=== PATIENT | male | born 1955 | race Caucasian/White ===

== ENCOUNTER 2017-11-27 15:28 | Emergency (ER) | payer MEDICAID ==
[~2017-11-27] VITALS: Ht 170.2 cm; Wt 59.0 kg
[~2017-11-27 15:28] MED LIST: CLOP75TA35 PO; HYDR-565 PO; NICO-631 TD
[2017-11-27 17:24] LABS: BASOPHILS % (AUTO) 0.2 % (0-1); EOSINOPHILS % (AUTO) 0.1 % (0-6); HEMATOCRIT 31.6 % (42.0-52.0); HEMOGLOBIN 10.6 g/dl (14.0-17.9); LYMPHOCYTES # (AUTO) 0.4 X10'3 (1.1-4.8); LYMPHOCYTES % (AUTO) 6.1 % (21-51); MEAN CORPUSCULAR HEMOGLOBIN 29.4 PG (27.0-31.0); MEAN CORPUSCULAR HGB CONC 33.4 % (33.0-36.5); MEAN CORPUSCULAR VOLUME 88.1 FL (78-98); MEAN PLATELET VOLUME 7.1 FL (7.4-10.4); MONOCYTES # (AUTO) 0.3 X10'3 (0-0.9); MONOCYTES % (AUTO) 4.6 % (2-12); NEUTROPHILS # (AUTO) 6.2 X10'3 (1.8-7.7); PLATELET COUNT 287 X10'3 (140-440); RED BLOOD COUNT 3.59 X10'6 (4.70-6.10); RED CELL DISTRIBUTION WIDTH 16.7 % (11.5-14.5)
[2017-11-27 17:35] LABS: INR 1.1 INR; PARTIAL THROMBOPLASTIN TIME 28 SECONDS (22-32); PROTHROMBIN TIME 10.9 SECONDS (9.0-12.0)
[2017-11-27 17:39] LABS: ALANINE AMINOTRANSFERASE 69 U/L (12-78); ALBUMIN 2.9 G/DL (3.4-5.0); ALBUMIN/GLOBULIN RATIO 0.6 (1.1-1.5); ALKALINE PHOSPHATASE 87 IU/L (46-116); ANION GAP 9 (8-16); ASPARTATE AMINO TRANSFERASE 41 U/L (10-37); BILIRUBIN,TOTAL 0.5 MG/DL (0.1-1.0); BLOOD UREA NITROGEN 20 MG/DL (7-18); CALCIUM 9.2 MG/DL (8.5-10.1); CHLORIDE 103 MMOL/L (99-107); CREATININE 0.91 MG/DL (0.60-1.10); GLUCOSE 105 MG/DL (70-104); MAGNESIUM 1.3 MG/DL (1.5-2.4); SODIUM 137 MMOL/L (135-145); TOTAL CARBON DIOXIDE 24.9 MMOL/L (24-32); TOTAL PROTEIN 7.5 G/DL (6.4-8.2); eGFR 84 ML/MIN
[2017-11-27] MEDS ORDERED: normal saline 1000ML IV soln IVB ONE (17:40)
[2017-11-27] MEDS ORDERED: vancomycin/NS 1 GM ADD-VANTAGE 250 ML IV ONE (17:40)
[2017-11-27 18:30] LABS: CLARITY,URINE CLEAR (Clear); COLOR,URINE YELLOW (Yellow); GLUCOSE, URINE NEGATIVE (Neg); KETONES,URINE NEGATIVE (Neg); LEUKOCYTE ESTERASE ,URINE NEGATIVE (Neg); NITRITES, URINE NEGATIVE (Neg); OCCULT BLOOD,URINE LARGE (Neg); PROTEIN,URINE NEGATIVE (Neg); UROBILINOGEN,URINE 0.2 E.U/dL (0.2-1.0)
[2017-11-27 18:35] LABS: UA COLLECTION TYPE URINAL
[2017-11-27] MEDS ORDERED: acetaminophen 650mg rectal suppository RC ONE (18:35)
[2017-11-27 18:37] LABS: BACTERIA,URINE FEW /HPF (Neg); RBC,URINE 50-100 /HPF (0-2); SQUAMOUS EPITHELIAL CELL,UR FEW /LPF (FEW); WBC,URINE 0-4 /HPF (0-4); YEAST MODERATE /HPF (NEGATIVE)
[2017-11-27 18:44] LABS: URINE AMPHETAMINE SCREEN POSITIVE (Neg); URINE BARBITUATE SCREEN NEGATIVE (Neg); URINE BENZODIAZEPINES SCREEN NEGATIVE (Neg); URINE CANNABINOID SCREEN NEGATIVE (Neg); URINE COCAINE SCREEN NEGATIVE (Neg); URINE METHADONE SCREEN NEGATIVE (Neg); URINE OPIATE SCREEN NEGATIVE (Neg); URINE PHENCYCLIDINE SCREEN NEGATIVE (Neg)
[2017-11-27 18:50] LABS: ACETAMINOPHEN < 2.0 UG/ML (10-30); ETHANOL < 0.010 GM/DL (0.0-0.010)
[2017-11-27] MEDS ORDERED: magnesium 2GM in 50ml NS 50 ML IV PRN (18:55)
[2017-11-27] MEDS ORDERED: piperacillin/tazo 3.375gm/50ml 50 ML IV SCH (20:00)
[2017-11-27 20:56] VITALS: BP 105/74
== END 2017-11-27 21:01 | disposition short-term general hospital (02) ==
LOC: ER 15:29
DX: S12.110A Anterior displaced Type II dens fracture, initial encounter for closed fracture (principal); S70.12XA Contusion of left thigh, initial encounter; A41.9 Sepsis, unspecified organism; N99.820 Postprocedural hemorrhage of a genitourinary system organ or structure following a genitourinary system procedure; M25.559 Pain in unspecified hip; G89.29 Other chronic pain; F15.10 Other stimulant abuse, uncomplicated; R41.82 Altered mental status, unspecified; F12.90 Cannabis use, unspecified, uncomplicated; I10 Essential (primary) hypertension; J44.9 Chronic obstructive pulmonary disease, unspecified; Y83.8 Other surgical procedures as the cause of abnormal reaction of the patient, or of later complication, without mention of misadventure at the time of the procedure; Y92.89 Other specified places as the place of occurrence of the external cause; W19.XXXA Unspecified fall, initial encounter; Y93.89 Activity, other specified; Y99.8 Other external cause status
CPT/HCPCS: 36415; 70450; 71045; 72125; 80053; 80305; 80320; 80329; 81001; 83605; 83735; 84145; 85025; 85610; 85730; 87040; 87077; 87186; 93005; 96365; 96367; 96368; 99291; A6253; A6446; A6449; C1758; J2543; J3370; J3475; J7030; L0172; 96361; 99285

== ENCOUNTER 2021-05-08 11:48 | Emergency (ER) | payer BC, MEDICAID ==
[~2021-05-08] VITALS: Ht 170.2 cm; Wt 75.0 kg
[~2021-05-08 11:48] MED LIST changes: +CLOP75TA34 PO; -CLOP75TA35 PO; -HYDR-565 PO; +IBUP-1985 PO
[2021-05-08 12:27] LABS: BASOPHILS % (AUTO) 0.6 % (0-1); EOSINOPHILS # (AUTO) 0.2 X10'3 (0-0.9); EOSINOPHILS % (AUTO) 2.9 % (0-6); HEMATOCRIT 37.5 % (42.0-52.0); HEMOGLOBIN 12.6 g/dl (14.0-17.9); LYMPHOCYTES # (AUTO) 1.1 X10'3 (1.1-4.8); LYMPHOCYTES % (AUTO) 19.6 % (21-51); MEAN CORPUSCULAR HEMOGLOBIN 31.2 PG (27.0-31.0); MEAN CORPUSCULAR HGB CONC 33.5 g/dL (33.0-36.5); MEAN PLATELET VOLUME 7.3 FL (7.4-10.4); MONOCYTES # (AUTO) 0.8 X10'3 (0-0.9); MONOCYTES % (AUTO) 12.9 % (2-12); NEUTROPHILS # (AUTO) 3.7 X10'3 (1.8-7.7); PLATELET COUNT 194 X10'3 (140-440); RED BLOOD COUNT 4.03 X10'6 (4.70-6.10); RED CELL DISTRIBUTION WIDTH 15.7 % (11.5-14.5); WHITE BLOOD COUNT 5.9 X10'3 (4.5-11.0)
[2021-05-08 12:35] LABS: D-DIMER 3.69 MG/L FEU (0-0.50)
[2021-05-08 12:43] LABS: ALANINE AMINOTRANSFERASE 35 U/L (12-78); ALBUMIN 1.5 G/DL (3.4-5.0); ALBUMIN/GLOBULIN RATIO 0.3 (1.1-1.5); ALKALINE PHOSPHATASE 96 IU/L (46-116); ANION GAP 6 (8-16); ASPARTATE AMINO TRANSFERASE 50 U/L (10-37); BILIRUBIN,TOTAL 0.5 MG/DL (0.1-1.0); BLOOD UREA NITROGEN 26 MG/DL (7-18); BUN/CREATININE RATIO 21.7 (5.4-32.0); CALCIUM 7.9 MG/DL (8.5-10.1); CHLORIDE 103 MMOL/L (99-107); POTASSIUM 4.8 MMOL/L (3.5-5.1); SODIUM 135 MMOL/L (135-145); TOTAL CARBON DIOXIDE 25.7 MMOL/L (24-32); TOTAL PROTEIN 7.1 G/DL (6.4-8.2); eGFR 61 ML/MIN
[2021-05-08 13:35] LABS: GLUCOSE 102 MG/DL (70-104)
[2021-05-08] MEDS ORDERED: iohexol 350 MG/ML 50ML vial IV ONE (14:19)
[2021-05-08] MEDS ORDERED: iohexol 350MG/ML 100ml bottle IV ONE (14:20)
--- NOTE | 2021-05-08 14:45 | NUR ---
PT TAKEN TO CT VIA GURNEY BY TECH.
[2021-05-08 18:09] VITALS: BP 155/90
== END 2021-05-08 18:07 | disposition home or self-care (01) ==
LOC: ER 11:48
DX: K40.90 Unilateral inguinal hernia, without obstruction or gangrene, not specified as recurrent (principal); R10.30 Lower abdominal pain, unspecified; R60.0 Localized edema; I10 Essential (primary) hypertension; J44.9 Chronic obstructive pulmonary disease, unspecified; G89.29 Other chronic pain; F12.90 Cannabis use, unspecified, uncomplicated; Z98.890 Other specified postprocedural states; Z72.89 Other problems related to lifestyle; Z60.2 Problems related to living alone; Z79.899 Other long term (current) drug therapy
CPT/HCPCS: 36415; 71045; 75635; 80053; 83880; 84484; 85025; 85379; 93005; 93922; 99285; Q9967

== ENCOUNTER 2021-11-18 19:25 | Inpatient (IN) | payer BC, MEDICAID ==
[~2021-11-18] VITALS: Ht 167.6 cm; Wt 93.3 kg
[2021-11-18] MEDS ORDERED: sevoflurane 250ml liquid IH ONE (19:43)
[2021-11-18] MEDS ORDERED: fentaNYL /PF 50mcg/ml 5ml ampule ONE (19:45)
[2021-11-18] MEDS ORDERED: midazolam 1 mg/ML 2ml injection ONE (19:45)
[2021-11-18] MEDS ORDERED: propofol inj 20 ML IV ONE (19:45)
[2021-11-18] MEDS ORDERED: heparin 1,000unit/ml 10ml vial 10 ML ONE (20:21)
[2021-11-18] MEDS ORDERED: rocuronium 10mg/ml inj IV ONE ×2 (20:21)
[2021-11-18] MEDS ORDERED: dexamethasone sod phosphate 4mg/ml inj. ONE (20:30)
[2021-11-18] MEDS ORDERED: albumin (Human) 5% 250ml 500 ML IV ONE ×2 (20:38→23:28)
[2021-11-18] MEDS ORDERED: ceFAZolin 1000mg inj ONE ×2 (20:39)
[2021-11-18] MEDS ORDERED: NORepinephrine 1 mg/ml inj IV ONE (21:29)
[2021-11-18 23:13] LABS: APTT 50 SECONDS (22-32)
[2021-11-18] MEDS ORDERED: albumin (Human) 5% 250ml 250 ML IV ONE (23:29)
[2021-11-19] VITALS (22 sets, daily range): BP systolic 94–151; BP diastolic 42–59
[2021-11-19] MEDS ORDERED: rocuronium 10mg/ml inj IV ONE (00:50)
[2021-11-19] MEDS ORDERED: FENTANYL-0.9 % NACL/PF 100 ML IV PRN ×2 (01:15)
[2021-11-19] MEDS: potassium CL 20mEq in D5-1/2NS 1,000 ML IV SCH ×2 (01:30→09:30)
[2021-11-19] MEDS ORDERED: midazolam 100mg in NS 100ml 100 ML IV PRN (01:30)
[2021-11-19] MEDS ORDERED: ondansetron/PF 4mg/2ml inj IV PRN (01:30)
[2021-11-19 01:49] LABS: ABG BASE EXCESS -5.8 mmol/L (-2.0-2.0); ABG HCO3 20.5 mmol/L (22.0-26.0); ABG OXYGEN SATURATION 95.2 % (94-97); ABG PO2 (T) 85.7 mmHg (75.0-100.0); FCOHb 0.8 % (0.0-3.9); FMetHb 0.5 % (0.0-1.5); PATIENT TEMPERATURE 37.5; PEEP 5 cm H2O; RESPIRATORY RATE 14 b/min; TIDAL VOLUME 500 mL; TOTAL HEMOGLOBIN 13.1 G/dl (14.0-18.0)
[2021-11-19 01:54] LABS: BASOPHILS % (AUTO) 0.1 % (0-1); EOSINOPHILS % (AUTO) 0 % (0-6); HEMATOCRIT 35.8 % (42.0-52.0); HEMOGLOBIN 12.1 g/dl (14.0-17.9); LYMPHOCYTES # (AUTO) 0.7 X10'3 (1.1-4.8); LYMPHOCYTES % (AUTO) 5.1 % (21-51); MEAN CORPUSCULAR HEMOGLOBIN 31.3 PG (27.0-31.0); MEAN CORPUSCULAR HGB CONC 33.9 g/dL (33.0-36.5); MEAN CORPUSCULAR VOLUME 92.2 FL (78-98); MEAN PLATELET VOLUME 8.2 FL (7.4-10.4); MONOCYTES # (AUTO) 0.9 X10'3 (0-0.9); MONOCYTES % (AUTO) 6.2 % (2-12); NEUTROPHILS # (AUTO) 12.4 X10'3 (1.8-7.7); NEUTROPHILS % (AUTO) 88.6 % (42-75); PLATELET COUNT 171 X10'3 (140-440); RED BLOOD COUNT 3.88 X10'6 (4.70-6.10); RED CELL DISTRIBUTION WIDTH 16.1 % (11.5-14.5)
[2021-11-19] MEDS ORDERED: vancomycin/NS 1 GM ADD-VANTAGE 250 ML IV SCH (02:00)
[2021-11-19 02:09] LABS: APTT 36 SECONDS (22-32)
[2021-11-19 02:11] LABS: ALANINE AMINOTRANSFERASE 53 U/L (12-78); ALBUMIN 2.2 G/DL (3.4-5.0); ALBUMIN/GLOBULIN RATIO 0.7 (1.1-1.5); ALKALINE PHOSPHATASE 47 IU/L (46-116); ANION GAP 10 (8-16); ASPARTATE AMINO TRANSFERASE 25 U/L (10-37); BILIRUBIN,TOTAL 2.5 MG/DL (0.1-1.0); BLOOD UREA NITROGEN 20 MG/DL (7-18); BUN/CREATININE RATIO 19.8 (5.4-32.0); CALCIUM 6.6 MG/DL (8.5-10.1); CHLORIDE 104 MMOL/L (99-107); CREATININE 1.01 MG/DL (0.60-1.10); GLUCOSE 163 MG/DL (70-104); MAGNESIUM 1.3 MG/DL (1.5-2.4); PHOSPHORUS 3.3 MG/DL (2.3-4.5); POTASSIUM 3.9 MMOL/L (3.5-5.1); SODIUM 137 MMOL/L (135-145); TOTAL CARBON DIOXIDE 22.7 MMOL/L (24-32); TOTAL PROTEIN 5.4 G/DL (6.4-8.2); TRIGLYCERIDES 54 MG/DL (20-135); eGFR 74 ML/MIN
[2021-11-19] MEDS: FENTANYL-0.9 % NACL/PF 100 ML IV PRN ×4 (02:11→21:45)
[2021-11-19] MEDS: propofol 1000mg/100ml bottle 100 ML IV SCH ×5 (02:11→21:50)
[2021-11-19 03:20] LABS: TOTAL CELLS COUNTED 100
[2021-11-19 03:21] LABS: ANISOCYTOSIS 1+; PLATELET ESTIMATE NORMAL
--- NOTE | 2021-11-19 06:30 | NUR ---
Patient in room CICU 2008. I have received report from Bess PATRICIO and had the opportunity to ask questions and assume patient care.
[2021-11-19] MEDS: NORepinephrine 8mg/ 250ml NS 250 ML IV SCH ×2 (07:06→16:02)
[2021-11-19] MEDS: piperacillin/tazo 3.375gm/50ml 50 ML IV SCH ×2 (08:44→16:01)
[2021-11-19] MEDS ORDERED: dextrose 50%-water 50ml dispensing syringe IV PRN ×2 (08:55)
[2021-11-19] MEDS ORDERED: insulin Lispro (HumaLOG) vial - multi-dose SQ SCH (08:55)
[2021-11-19] MEDS ORDERED: glucagon, human recombinant 1mg kit SUBCUT PRN (08:55)
[2021-11-19] MEDS ORDERED: dextrose ORAL solution 15 GM/59 ML bottle PO PRN ×2 (08:55)
[2021-11-19] MEDS ORDERED: MESSAGE TO PHARMACY PO ONE (08:55)
[2021-11-19] MEDS ORDERED: IBUP-1986 PO (09:23)
[2021-11-19 11:23] LABS: HEMOGLOBIN A1C 5.4 % (4.5-6.2)
--- NOTE | 2021-11-19 11:43 | NUR ---
Initial: Pt admit for right femoral artery bleed with a large right groin hematoma. Pt s/p iliopopliteal bypass with right groin and sartorius muscle flab exploration. Pt remains intubated at this time, with an NGT in place though no TF consult. Will place TF recommendations below for if expected prolonged intubation and to receive nutrition support. Noted pt receiving Propofol, visualized at bedside to be running at 14.95 mL/hr providing 395 kcal/day, TF recommendations have been adjusted accordingly. Will continue to follow closely. Recommendations: 1) IF TF and Propofol at 14.95 mL/hr (395 kcal/day), continuous Vital AF via NGT with 70 mL/hr goal rate. To begin at 30 mL/hr and advance by 20 mL Q8H as tolerated to goal rate 2) IF TF and no Propofol, continuous Vital AF via NGT with 80 mL/hr goal rate. To begin at 20 mL/hr and advance by 20 mL Q8H as tolerated to goal rate 3) IF TF, additional 125 mL water flush Q4H; monitor serum Na 4) IF TF, prealbumin q Thursday/; daily scaled weights 5) Routine bowel care 6) Advance to regular diet as medically indicated following extubation Addendum: 11/19/21 at [address] Amended: Links added.
[2021-11-19] MEDS ORDERED: albumin (Human) 5% 250ml 250 ML IV ONE (14:25)
--- NOTE | 2021-11-19 14:49 | NUR ---
Dr. Reinoso and Dr. Tabor into see patient.
[2021-11-19] MEDS ORDERED: potassium Cl 20 mEq SR tablet PO PRN (14:55)
[2021-11-19] MEDS ORDERED: potassium Cl 20mEq/100mL bag 100 ML IV PRN (14:55)
[2021-11-19] MEDS ORDERED: sodium phosphate inj. 15 MMOL in dextrose 5%-water 250 ML IV PRN (14:55)
[2021-11-19] MEDS ORDERED: pantoprazole 40MG/D5 100ML BAG 100 ML IV SCH (14:55)
[2021-11-19] MEDS ORDERED: sodium phosphate inj. 30 MMOL in dextrose 5%-water 250 ML IV PRN (14:55)
[2021-11-19] MEDS ORDERED: Neutra Phos packet PO PRN (14:55)
[2021-11-19 15:19] LABS: BASOPHILS % (AUTO) 0 % (0-1); EOSINOPHILS % (AUTO) 0 % (0-6); HEMATOCRIT 34.2 % (42.0-52.0); HEMOGLOBIN 11.3 g/dl (14.0-17.9); LYMPHOCYTES # (AUTO) 0.9 X10'3 (1.1-4.8); MEAN CORPUSCULAR HEMOGLOBIN 30.8 PG (27.0-31.0); MEAN CORPUSCULAR HGB CONC 32.9 g/dL (33.0-36.5); MEAN CORPUSCULAR VOLUME 93.6 FL (78-98); MEAN PLATELET VOLUME 7.7 FL (7.4-10.4); MONOCYTES # (AUTO) 1.7 X10'3 (0-0.9); MONOCYTES % (AUTO) 9.6 % (2-12); NEUTROPHILS # (AUTO) 15.3 X10'3 (1.8-7.7); NEUTROPHILS % (AUTO) 85.4 % (42-75); PLATELET COUNT 214 X10'3 (140-440); RED BLOOD COUNT 3.65 X10'6 (4.70-6.10); RED CELL DISTRIBUTION WIDTH 17.1 % (11.5-14.5); WHITE BLOOD COUNT 17.9 X10'3 (4.5-11.0)
[2021-11-19] MEDS: vancomycin/NS 1 GM ADD-VANTAGE 250 ML IV SCH (15:19)
[2021-11-19 15:34] LABS: ALANINE AMINOTRANSFERASE 45 U/L (12-78); ALBUMIN/GLOBULIN RATIO 0.6 (1.1-1.5); ALKALINE PHOSPHATASE 47 IU/L (46-116); ANION GAP 11 (8-16); ASPARTATE AMINO TRANSFERASE 23 U/L (10-37); BILIRUBIN,TOTAL 1.3 MG/DL (0.1-1.0); BLOOD UREA NITROGEN 22 MG/DL (7-18); CALCIUM 6.4 MG/DL (8.5-10.1); CHLORIDE 106 MMOL/L (99-107); CREATININE 1.05 MG/DL (0.60-1.10); GLUCOSE 192 MG/DL (70-104); MAGNESIUM 1.5 MG/DL (1.5-2.4); POTASSIUM 4.5 MMOL/L (3.5-5.1); SODIUM 138 MMOL/L (135-145); TOTAL CARBON DIOXIDE 21.5 MMOL/L (24-32); TOTAL PROTEIN 5.3 G/DL (6.4-8.2); eGFR 70 ML/MIN
[2021-11-19] MEDS ORDERED: magnesium 2GM in 50ml NS 50 ML IV PRN (16:10)
[2021-11-19] MEDS ORDERED: magnesium 4gm in 100ml NS 100 ML IV PRN (16:10)
[2021-11-19] MEDS: normal saline 1000ml 1,000 ML IV SCH (16:17)
--- NOTE | 2021-11-19 17:23 | NUR ---
Patient sedated but wakes up easily to verbal stimuli and follows commands. Pain managed with Fentanyl gtt. Remains dependent on Levophed for BP control. Normal saline & Albumin given for volume. UO marginal 30-40 ml/hr. Sats in high 90's on 40% FiO2. Suctioned for moderate amount white/creamy thick secretions. Rt groin site reddened around wound vac dressing. Area marked to monitor for increase in erythema. Rt DP & PT pulses present via doppler.
--- NOTE | 2021-11-19 18:07 | NUR ---
Problems reprioritized. Patient report given, questions answered & plan of care reviewed with Bess PATRICIO.
[2021-11-19] MEDS: insulin glargine (Lantus) pen - multi-dose SQ SCH (21:00)
[2021-11-20] VITALS (21 sets, daily range): BP systolic 94–140; BP diastolic 44–60
[2021-11-20] MEDS: piperacillin/tazo 3.375gm/50ml 50 ML IV SCH ×4 (00:30→23:20)
[2021-11-20] MEDS: normal saline 1000ml 1,000 ML IV SCH ×3 (00:30→15:39)
[2021-11-20] MEDS: vancomycin/NS 1 GM ADD-VANTAGE 250 ML IV SCH ×2 (03:00→15:42)
[2021-11-20 03:38] LABS: BASOPHILS % (AUTO) 0.1 % (0-1); EOSINOPHILS % (AUTO) 0 % (0-6); HEMATOCRIT 31.7 % (42.0-52.0); HEMOGLOBIN 10.4 g/dl (14.0-17.9); LYMPHOCYTES % (AUTO) 6.2 % (21-51); MEAN CORPUSCULAR HEMOGLOBIN 30.8 PG (27.0-31.0); MEAN CORPUSCULAR HGB CONC 32.9 g/dL (33.0-36.5); MEAN CORPUSCULAR VOLUME 93.6 FL (78-98); MONOCYTES # (AUTO) 1.6 X10'3 (0-0.9); MONOCYTES % (AUTO) 10.2 % (2-12); NEUTROPHILS # (AUTO) 13.4 X10'3 (1.8-7.7); NEUTROPHILS % (AUTO) 83.5 % (42-75); PLATELET COUNT 184 X10'3 (140-440); RED BLOOD COUNT 3.39 X10'6 (4.70-6.10); RED CELL DISTRIBUTION WIDTH 17.1 % (11.5-14.5)
[2021-11-20 03:51] LABS: ABG BASE EXCESS -5.1 mmol/L (-2.0-2.0); ABG HCO3 19.1 mmol/L (22.0-26.0); ABG OXYGEN SATURATION 98.5 % (94-97); ABG PCO2 (T) 32.6 mmHg (35.0-48.0); ABG PO2 (T) 122.2 mmHg (75.0-100.0); FCOHb 0.3 % (0.0-3.9); FMetHb 0.2 % (0.0-1.5); PATIENT TEMPERATURE 37.1; PEEP 5 cm H2O; RESPIRATORY RATE 16 b/min; TIDAL VOLUME 500 mL; TOTAL HEMOGLOBIN 11.4 G/dl (14.0-18.0)
[2021-11-20 03:53] LABS: ALBUMIN 2.2 G/DL (3.4-5.0); ANION GAP 10 (8-16); BLOOD UREA NITROGEN 23 MG/DL (7-18); BUN/CREATININE RATIO 24.7 (5.4-32.0); CALCIUM 6.8 MG/DL (8.5-10.1); CHLORIDE 108 MMOL/L (99-107); CREATININE 0.93 MG/DL (0.60-1.10); GLUCOSE 148 MG/DL (70-104); MAGNESIUM 2.1 MG/DL (1.5-2.4); PHOSPHORUS 2.8 MG/DL (2.3-4.5); POTASSIUM 4.4 MMOL/L (3.5-5.1); SODIUM 139 MMOL/L (135-145); TOTAL CARBON DIOXIDE 20.8 MMOL/L (24-32); TRIGLYCERIDES 84 MG/DL (20-135); eGFR 81 ML/MIN
[2021-11-20] MEDS: pantoprazole 40MG/NS 100ML BAG 100 ML IV SCH (07:54)
[2021-11-20] MEDS: K and/or MAG REPLACEMENT MC SCH (08:00)
[2021-11-20] MEDS ORDERED: polyethylene glycol 3350 17gm powd pack PO PRN (11:35)
--- NOTE | 2021-11-20 12:06 | NUR ---
F/u: Pt extubated this morning though remains NPO at this time with an NGT in place. Pt started on routine and PRN bowel care today per MD. Will continue to follow closely and make recommendations as appropriate. Recommendations: 1) Advance to regular diet as medically indicated 2) Monitor need for ONS/additional protein with PO diet advancement 3) Routine bowel care 4) Weekly scaled weights Addendum: 11/20/21 at [address] Amended: Links added.
[2021-11-20] MEDS: HYDROmorphone inj. 0.5 MG/0.5 ML DISP.SYRIN IV PRN ×2 (18:00→22:06)
[2021-11-20] MEDS: lactobacillus rhamnosus 10,000 MMU CELLS/CAPSULE PO SCH (20:49)
[2021-11-20] MEDS: enoxaparin 40mg/0.4ml syringe SQ SCH (20:49)
[2021-11-20] MEDS: insulin glargine (Lantus) pen - multi-dose SQ SCH (21:00)
[2021-11-21] VITALS (15 sets, daily range): BP systolic 109–154; BP diastolic 42–79
[2021-11-21] MEDS: normal saline 1000ml 1,000 ML IV SCH ×2 (00:42→08:00)
[2021-11-21] MEDS ORDERED: VANCOMYCIN LEVEL IV ONE (02:30)
[2021-11-21] MEDS: vancomycin/NS 1 GM ADD-VANTAGE 250 ML IV SCH (03:47)
[2021-11-21 03:57] LABS: BASOPHILS % (AUTO) 0.2 % (0-1); EOSINOPHILS % (AUTO) 0.7 % (0-6); HEMATOCRIT 26.7 % (42.0-52.0); LYMPHOCYTES # (AUTO) 1.3 X10'3 (1.1-4.8); LYMPHOCYTES % (AUTO) 22.6 % (21-51); MEAN CORPUSCULAR HEMOGLOBIN 31.9 PG (27.0-31.0); MEAN CORPUSCULAR HGB CONC 33.7 g/dL (33.0-36.5); MEAN CORPUSCULAR VOLUME 94.6 FL (78-98); MEAN PLATELET VOLUME 8.3 FL (7.4-10.4); MONOCYTES # (AUTO) 0.6 X10'3 (0-0.9); NEUTROPHILS # (AUTO) 3.8 X10'3 (1.8-7.7); NEUTROPHILS % (AUTO) 65.5 % (42-75); PLATELET COUNT 125 X10'3 (140-440); RED BLOOD COUNT 2.83 X10'6 (4.70-6.10); RED CELL DISTRIBUTION WIDTH 16.9 % (11.5-14.5); WHITE BLOOD COUNT 5.8 X10'3 (4.5-11.0)
[2021-11-21 04:05] LABS: ALBUMIN 1.9 G/DL (3.4-5.0); ANION GAP 5 (8-16); BLOOD UREA NITROGEN 20 MG/DL (7-18); BUN/CREATININE RATIO 24.4 (5.4-32.0); CALCIUM 7.2 MG/DL (8.5-10.1); CHLORIDE 113 MMOL/L (99-107); CREATININE 0.82 MG/DL (0.60-1.10); GLUCOSE 95 MG/DL (70-104); PHOSPHORUS 1.6 MG/DL (2.3-4.5); POTASSIUM 3.9 MMOL/L (3.5-5.1); SODIUM 143 MMOL/L (135-145); VANCOMYCIN,TROUGH 12.9 UG/ML (6.0-14.0); eGFR > 90 ML/MIN
[2021-11-21] MEDS: HYDROmorphone inj. 0.5 MG/0.5 ML DISP.SYRIN IV PRN ×2 (05:22→09:53)
--- NOTE | 2021-11-21 06:00 | NUR ---
Patient in room CICU 2007. I have received report from Jose PATRICIO and had the opportunity to ask questions and assume patient care.
[2021-11-21] MEDS: piperacillin/tazo 3.375gm/50ml 50 ML IV SCH ×2 (07:59→16:23)
[2021-11-21] MEDS: lactobacillus rhamnosus 10,000 MMU CELLS/CAPSULE PO SCH ×2 (07:59→21:08)
[2021-11-21] MEDS: pantoprazole 40MG/NS 100ML BAG 100 ML IV SCH (07:59)
[2021-11-21] MEDS: K and/or MAG REPLACEMENT MC SCH (08:00)
[2021-11-21] MEDS: bisacodyl 5mg tablet.DR PO SCH (10:00)
--- NOTE | 2021-11-21 10:00 | NUR ---
wound vac nurse at bedside, wound vac changed, abdominal and leg incision cleaned and dressings changed also
[2021-11-21] MEDS ORDERED: silver nitrate applicator stick TP STA (10:24)
--- NOTE | 2021-11-21 11:23 | NUR ---
report called to Maurizio PATRICIO on teli floor
[2021-11-21] MEDS ORDERED: POTASSIUM PHOSHATE inj. 30 MMOL in NORMAL SALINE 500ml IV.SOLN IV ONE (11:30)
--- NOTE | 2021-11-21 11:30 | NUR ---
received report from CERTIFIED DRIVER EXAMINER. Had opportunity to ask questions concerning care and plan. Awaiting arrival of Pt to room 3024P.
--- NOTE | 2021-11-21 12:25 | NUR ---
Pt arrived to room 3024A. Pt alert and oriented and vitals WNL. pulses detected by doppler. Will continue to monitor Pt as needed.
--- NOTE | 2021-11-21 12:32 | NUR ---
pt transferred to PCU via bed. Medications and patients person belongings. Pt carried his phone and was wearing his glasses.
--- NOTE | 2021-11-21 13:55 | NUR ---
WOUND VAC EDUCATION PROVIDED BY WOUND CARE 1. Patient instructed to call the Wound Center or their Home Health Agency immediately if: * They notice a change in the color or amount of the fluid in the canister. * Their wound looks more red than usual or has a foul smell. * The skin around their wound looks reddened or irritated. * The dressing feels loose or appears to be loose. * They experience any increase or changes in their pain. * The alarm will not turn off. 2. Patient instructed that they should not be disconnected from suction for more than 2 hours at a time. * If they are not able to get the suction back on, they need to remove the dressing and take all of the foam out of the wound. * Then moisten sterile gauze with normal saline and place on/in the wound. * Change the dressing once a day until arrangements have been made to replace the wound vac dressing. 3. Patient instructed to turn the wound vac machine OFF and call 911 or go to the ED immediately if their canister fills rapidly with blood. 4. If any of these occur while in the hospital tell a nurse immediately. Addendum: 11/21/21 at 1356 by Amairani Hopper RN Amended: Links added. Addendum: 11/21/21 at 1359 by Amairani Hopper RN Amended: Links added.
[2021-11-21] MEDS: VANCOmycin 1250MG/NS 250ml Bag 250 ML IV SCH (16:23)
--- NOTE | 2021-11-21 18:40 | NUR ---
Problems reprioritized. Patient report given, questions answered & plan of care reviewed with terence PATRICIO.
[2021-11-21] MEDS: enoxaparin 40mg/0.4ml syringe SQ SCH (21:09)
[2021-11-21] MEDS: insulin glargine (Lantus) pen - multi-dose SQ SCH ×2 (21:23→21:43)
[2021-11-22] MEDS: piperacillin/tazo 3.375gm/50ml 50 ML IV SCH ×3 (00:46→16:00)
[2021-11-22 02:00] VITALS: BP 143/55
[2021-11-22] MEDS: HYDROmorphone inj. 0.5 MG/0.5 ML DISP.SYRIN IV PRN ×2 (02:55→13:20)
[2021-11-22] MEDS: VANCOmycin 1250MG/NS 250ml Bag 250 ML IV SCH ×2 (03:04→15:21)
[2021-11-22] MEDS: insulin glargine (Lantus) pen - multi-dose SQ SCH ×3 (04:10→05:33)
[2021-11-22 06:06] VITALS: BP 146/65
[2021-11-22 06:21] LABS: BASOPHILS % (AUTO) 0.3 % (0-1); EOSINOPHILS # (AUTO) 0.1 X10'3 (0-0.9); EOSINOPHILS % (AUTO) 1.9 % (0-6); HEMATOCRIT 29.5 % (42.0-52.0); HEMOGLOBIN 9.9 g/dl (14.0-17.9); LYMPHOCYTES # (AUTO) 1.3 X10'3 (1.1-4.8); LYMPHOCYTES % (AUTO) 21.5 % (21-51); MEAN CORPUSCULAR HEMOGLOBIN 31.2 PG (27.0-31.0); MEAN CORPUSCULAR HGB CONC 33.6 g/dL (33.0-36.5); MEAN CORPUSCULAR VOLUME 92.7 FL (78-98); MEAN PLATELET VOLUME 7.7 FL (7.4-10.4); MONOCYTES # (AUTO) 0.5 X10'3 (0-0.9); MONOCYTES % (AUTO) 9.4 % (2-12); NEUTROPHILS # (AUTO) 3.9 X10'3 (1.8-7.7); NEUTROPHILS % (AUTO) 66.9 % (42-75); PLATELET COUNT 148 X10'3 (140-440); RED BLOOD COUNT 3.18 X10'6 (4.70-6.10); RED CELL DISTRIBUTION WIDTH 16.1 % (11.5-14.5); WHITE BLOOD COUNT 5.8 X10'3 (4.5-11.0)
[2021-11-22 06:32] LABS: ALBUMIN 1.9 G/DL (3.4-5.0); ANION GAP 9 (8-16); BLOOD UREA NITROGEN 13 MG/DL (7-18); BUN/CREATININE RATIO 16.5 (5.4-32.0); CALCIUM 7.3 MG/DL (8.5-10.1); CHLORIDE 107 MMOL/L (99-107); CREATININE 0.79 MG/DL (0.60-1.10); GLUCOSE 99 MG/DL (70-104); MAGNESIUM 1.5 MG/DL (1.5-2.4); PHOSPHORUS 2.2 MG/DL (2.3-4.5); POTASSIUM 3.4 MMOL/L (3.5-5.1); SODIUM 141 MMOL/L (135-145); TOTAL CARBON DIOXIDE 24.6 MMOL/L (24-32); eGFR > 90 ML/MIN
[2021-11-22] MEDS: K and/or MAG REPLACEMENT MC SCH (08:00)
--- NOTE | 2021-11-22 10:13 | NUR ---
Reassessment: NGT has been removed and PO diet advanced to full liquids then regular and pt eating well with average 75% PO intake meeting estimated nutrient needs. LBM 11/19 documented as a smear. Pt started on routine bowel care 11/21 with PRN bowel care available. No nutrition intervention implemented at this time. Will continue to follow and make recommendations as appropriate. Recommendations: 1) Continue regular diet 2) Monitor need for ONS/additional protein 3) Routine bowel care 4) Weekly scaled weights Addendum: 11/22/21 at [address] Amended: Links added.
[2021-11-22] MEDS: lactobacillus rhamnosus 10,000 MMU CELLS/CAPSULE PO SCH ×2 (10:52→20:15)
[2021-11-22] MEDS: pantoprazole 40MG/NS 100ML BAG 100 ML IV SCH (10:52)
[2021-11-22 12:12] VITALS: BP 143/59
[2021-11-22] MEDS: potassium Cl 20 mEq SR tablet PO PRN ×3 (13:20→23:04)
[2021-11-22 15:15] VITALS: BP 133/64
[2021-11-22 18:00] VITALS: BP 154/67
--- NOTE | 2021-11-22 18:39 | NUR ---
Problems reprioritized. report given, questions answered & plan of care reviewed with NORTH PATRICIO
[2021-11-22] MEDS: enoxaparin 40mg/0.4ml syringe SQ SCH (20:16)
[2021-11-22 22:00] VITALS: BP 140/64
[2021-11-23] MEDS: piperacillin/tazo 3.375gm/50ml 50 ML IV SCH ×3 (00:35→16:41)
[2021-11-23 02:00] VITALS: BP 154/64
[2021-11-23] MEDS ORDERED: VANCOMYCIN LEVEL IV ONE (02:30)
[2021-11-23 03:17] LABS: ALBUMIN 1.9 G/DL (3.4-5.0); ANION GAP 9 (8-16); BLOOD UREA NITROGEN 11 MG/DL (7-18); BUN/CREATININE RATIO 13.3 (5.4-32.0); CALCIUM 7.5 MG/DL (8.5-10.1); CHLORIDE 102 MMOL/L (99-107); CREATININE 0.83 MG/DL (0.60-1.10); GLUCOSE 121 MG/DL (70-104); MAGNESIUM 1.5 MG/DL (1.5-2.4); PHOSPHORUS 2.3 MG/DL (2.3-4.5); POTASSIUM 3.3 MMOL/L (3.5-5.1); SODIUM 139 MMOL/L (135-145); TOTAL CARBON DIOXIDE 28.2 MMOL/L (24-32); VANCOMYCIN,TROUGH 12.9 UG/ML (6.0-14.0); eGFR > 90 ML/MIN
[2021-11-23] MEDS: VANCOmycin 1250MG/NS 250ml Bag 250 ML IV SCH (03:30)
--- NOTE | 2021-11-23 06:15 | NUR ---
Patient in room PCU 3024. I have received report from Claudine PATRICIO and had the opportunity to ask questions and assume patient care.
[2021-11-23 06:58] LABS: BASOPHILS % (AUTO) 0.1 % (0-1); EOSINOPHILS # (AUTO) 0.2 X10'3 (0-0.9); EOSINOPHILS % (AUTO) 2.6 % (0-6); HEMATOCRIT 31.2 % (42.0-52.0); HEMOGLOBIN 10.6 g/dl (14.0-17.9); LYMPHOCYTES # (AUTO) 1.9 X10'3 (1.1-4.8); LYMPHOCYTES % (AUTO) 19.6 % (21-51); MEAN CORPUSCULAR HEMOGLOBIN 31.3 PG (27.0-31.0); MEAN CORPUSCULAR HGB CONC 33.9 g/dL (33.0-36.5); MEAN CORPUSCULAR VOLUME 92.1 FL (78-98); MEAN PLATELET VOLUME 7.7 FL (7.4-10.4); MONOCYTES # (AUTO) 0.7 X10'3 (0-0.9); NEUTROPHILS # (AUTO) 6.7 X10'3 (1.8-7.7); NEUTROPHILS % (AUTO) 70.7 % (42-75); PLATELET COUNT 188 X10'3 (140-440); RED BLOOD COUNT 3.38 X10'6 (4.70-6.10); RED CELL DISTRIBUTION WIDTH 16.2 % (11.5-14.5); WHITE BLOOD COUNT 9.5 X10'3 (4.5-11.0)
[2021-11-23] MEDS: aspirin 81mg, enteric-coated 1 TAB TABLET.DR PO SCH (07:58)
[2021-11-23] MEDS: lactobacillus rhamnosus 10,000 MMU CELLS/CAPSULE PO SCH ×2 (07:58→22:35)
[2021-11-23] MEDS: pantoprazole 40MG/NS 100ML BAG 100 ML IV SCH (07:58)
[2021-11-23 08:59] LABS: ANISOCYTOSIS 1+; PLATELET ESTIMATE NORMAL; TOTAL CELLS COUNTED 100
[2021-11-23] MEDS: potassium Cl 20 mEq SR tablet PO PRN ×2 (09:35→14:20)
[2021-11-23] MEDS: HYDROmorphone inj. 0.5 MG/0.5 ML DISP.SYRIN IV PRN ×2 (09:43→23:16)
[2021-11-23 18:00] VITALS: BP 131/68
--- NOTE | 2021-11-23 18:05 | NUR ---
Problems reprioritized. Patient report given, questions answered & plan of care reviewed with Ariela PATRICIO.
[2021-11-23] MEDS: insulin glargine (Lantus) pen - multi-dose SQ SCH (21:00)
[2021-11-23] MEDS: enoxaparin 40mg/0.4ml syringe SQ SCH (22:35)
[2021-11-24] MEDS: piperacillin/tazo 3.375gm/50ml 50 ML IV SCH ×3 (00:28→16:02)
[2021-11-24 02:00] VITALS: BP 121/59
[2021-11-24 07:04] LABS: BASOPHILS % (AUTO) 0.3 % (0-1); EOSINOPHILS # (AUTO) 0.4 X10'3 (0-0.9); EOSINOPHILS % (AUTO) 4.9 % (0-6); HEMATOCRIT 28.7 % (42.0-52.0); HEMOGLOBIN 9.8 g/dl (14.0-17.9); LYMPHOCYTES # (AUTO) 1.7 X10'3 (1.1-4.8); LYMPHOCYTES % (AUTO) 20.5 % (21-51); MEAN CORPUSCULAR HEMOGLOBIN 31.4 PG (27.0-31.0); MEAN CORPUSCULAR HGB CONC 34.1 g/dL (33.0-36.5); MEAN CORPUSCULAR VOLUME 91.9 FL (78-98); MEAN PLATELET VOLUME 7.9 FL (7.4-10.4); MONOCYTES # (AUTO) 0.7 X10'3 (0-0.9); MONOCYTES % (AUTO) 8.3 % (2-12); NEUTROPHILS # (AUTO) 5.5 X10'3 (1.8-7.7); PLATELET COUNT 207 X10'3 (140-440); RED BLOOD COUNT 3.12 X10'6 (4.70-6.10); RED CELL DISTRIBUTION WIDTH 16.1 % (11.5-14.5); WHITE BLOOD COUNT 8.4 X10'3 (4.5-11.0)
[2021-11-24 07:30] LABS: ALBUMIN 1.9 G/DL (3.4-5.0); ANION GAP 8 (8-16); BLOOD UREA NITROGEN 13 MG/DL (7-18); BUN/CREATININE RATIO 15.7 (5.4-32.0); CALCIUM 7.6 MG/DL (8.5-10.1); CHLORIDE 104 MMOL/L (99-107); CREATININE 0.83 MG/DL (0.60-1.10); GLUCOSE 104 MG/DL (70-104); MAGNESIUM 1.7 MG/DL (1.5-2.4); POTASSIUM 3.6 MMOL/L (3.5-5.1); SODIUM 140 MMOL/L (135-145); TOTAL CARBON DIOXIDE 27.8 MMOL/L (24-32); eGFR > 90 ML/MIN
[2021-11-24] MEDS: pantoprazole 40MG/NS 100ML BAG 100 ML IV SCH (10:23)
[2021-11-24] MEDS: aspirin 81mg, enteric-coated 1 TAB TABLET.DR PO SCH (10:26)
[2021-11-24] MEDS: bisacodyl 5mg tablet.DR PO SCH (10:26)
[2021-11-24] MEDS: lactobacillus rhamnosus 10,000 MMU CELLS/CAPSULE PO SCH ×2 (10:26→19:29)
[2021-11-24 11:00] VITALS: BP 140/65
[2021-11-24 18:00] VITALS: BP 155/76
--- NOTE | 2021-11-24 18:19 | NUR ---
Problems reprioritized. Patient report given, questions answered & plan of care reviewed with SHENG Huber. Patient stable at transfer of care.
--- NOTE | 2021-11-24 18:42 | NUR ---
Patient in room PCU 3024. I have received report from Jeny PATRICIO and had the opportunity to ask questions and assume patient care.
[2021-11-24] MEDS: enoxaparin 40mg/0.4ml syringe SQ SCH (19:29)
[2021-11-24] MEDS: HYDROmorphone inj. 0.5 MG/0.5 ML DISP.SYRIN IV PRN (19:29)
--- NOTE | 2021-11-24 20:00 | NUR ---
assisted Primary RN with reinforcing wound vac dressing due to leak. pt still has small leak, but suction is at ordered suction level and sponge is fully compressed.
[2021-11-24] MEDS: insulin glargine (Lantus) pen - multi-dose SQ SCH (21:00)
[2021-11-24 22:00] VITALS: BP 126/56
[2021-11-24] MEDS: nicotine 14mg patch - 24hr TD SCH (22:24)
[2021-11-25] MEDS: piperacillin/tazo 3.375gm/50ml 50 ML IV SCH ×4 (00:10→23:19)
[2021-11-25] MEDS: HYDROmorphone inj. 0.5 MG/0.5 ML DISP.SYRIN IV PRN ×4 (00:57→20:33)
[2021-11-25 02:20] VITALS: BP 122/57
--- NOTE | 2021-11-25 06:03 | NUR ---
Problems reprioritized. Patient report given, questions answered & plan of care reviewed with Susie PATRICIO.
--- NOTE | 2021-11-25 06:21 | NUR ---
Patient in room PCU 3024. I have received report from Cecile PATRICIO and had the opportunity to ask questions and assume patient care. Patient resting in bed in no acute distress.
[2021-11-25 07:00] VITALS: BP 125/69
--- NOTE | 2021-11-25 08:03 | NUR ---
called [phone] and notified WOC RN that wound vac has intermittent air leak and was told that they will be up to fix it shortly
[2021-11-25] MEDS: pantoprazole 40MG/NS 100ML BAG 100 ML IV SCH (08:14)
[2021-11-25] MEDS: nicotine 14mg patch - 24hr TD SCH (08:15)
[2021-11-25] MEDS: aspirin 81mg, enteric-coated 1 TAB TABLET.DR PO SCH (08:15)
[2021-11-25] MEDS: lactobacillus rhamnosus 10,000 MMU CELLS/CAPSULE PO SCH ×2 (08:15→20:32)
--- NOTE | 2021-11-25 08:16 | NUR ---
nicotine patch removed with morning med pass and new one applied
[2021-11-25 08:37] LABS: BASOPHILS % (AUTO) 0.4 % (0-1); EOSINOPHILS # (AUTO) 0.5 X10'3 (0-0.9); EOSINOPHILS % (AUTO) 5.8 % (0-6); HEMATOCRIT 30.7 % (42.0-52.0); HEMOGLOBIN 10.3 g/dl (14.0-17.9); LYMPHOCYTES # (AUTO) 1.8 X10'3 (1.1-4.8); LYMPHOCYTES % (AUTO) 20.9 % (21-51); MEAN CORPUSCULAR HGB CONC 33.6 g/dL (33.0-36.5); MEAN CORPUSCULAR VOLUME 92.2 FL (78-98); MONOCYTES # (AUTO) 0.5 X10'3 (0-0.9); MONOCYTES % (AUTO) 5.7 % (2-12); NEUTROPHILS # (AUTO) 5.7 X10'3 (1.8-7.7); NEUTROPHILS % (AUTO) 67.2 % (42-75); PLATELET COUNT 264 X10'3 (140-440); RED BLOOD COUNT 3.33 X10'6 (4.70-6.10); RED CELL DISTRIBUTION WIDTH 16.8 % (11.5-14.5); WHITE BLOOD COUNT 8.5 X10'3 (4.5-11.0)
[2021-11-25 08:50] LABS: ALANINE AMINOTRANSFERASE 31 U/L (12-78); ALBUMIN/GLOBULIN RATIO 0.4 (1.1-1.5); ALKALINE PHOSPHATASE 53 IU/L (46-116); ANION GAP 9 (8-16); ASPARTATE AMINO TRANSFERASE 29 U/L (10-37); BILIRUBIN,TOTAL 0.4 MG/DL (0.1-1.0); BLOOD UREA NITROGEN 13 MG/DL (7-18); BUN/CREATININE RATIO 13.7 (5.4-32.0); CALCIUM 8.1 MG/DL (8.5-10.1); CHLORIDE 103 MMOL/L (99-107); CREATININE 0.95 MG/DL (0.60-1.10); GLUCOSE 163 MG/DL (70-104); POTASSIUM 3.8 MMOL/L (3.5-5.1); SODIUM 137 MMOL/L (135-145); TOTAL CARBON DIOXIDE 25.1 MMOL/L (24-32); TOTAL PROTEIN 6.6 G/DL (6.4-8.2); eGFR 79 ML/MIN
--- NOTE | 2021-11-25 09:38 | NUR ---
Per patient request today's nicotine patch was removed shortly after application due to irritation at the application site. PT IS NOT WEARING ANY NICOTINE PATCH.
--- NOTE | 2021-11-25 10:12 | NUR ---
Orders for midline placement for IV antibiotics put in per Dr. Verdugo. Consent signed and in the chart.
[2021-11-25 10:29] LABS: ANISOCYTOSIS 1+; PLATELET ESTIMATE NORMAL; TOTAL CELLS COUNTED 100
--- NOTE | 2021-11-25 10:49 | NUR ---
page to PICC RN regarding midline [id number] Peggy. Pt needs midline -- NOT bioflow midline. Thanks HT! Emely [phone]
[2021-11-25 11:00] VITALS: BP 139/66
[2021-11-25 15:00] VITALS: BP 126/60
[2021-11-25 18:00] VITALS: BP 123/62
--- NOTE | 2021-11-25 18:05 | NUR ---
Problems reprioritized. Patient report given, questions answered & plan of care reviewed with Cecile PATRICIO. Patient resting in bed in no acute distress.
--- NOTE | 2021-11-25 18:10 | NUR ---
Patient in room PCU 3024. I have received report from Susie PATRICIO and had the opportunity to ask questions and assume patient care.
[2021-11-25] MEDS: enoxaparin 40mg/0.4ml syringe SQ SCH (20:32)
[2021-11-25] MEDS: insulin glargine (Lantus) pen - multi-dose SQ SCH (21:00)
[2021-11-25 22:00] VITALS: BP 106/61
[2021-11-26 02:00] VITALS: BP 126/58
--- NOTE | 2021-11-26 04:12 | NUR ---
Wound Vac started to leak a little bit, retaped it for reinforcement, will continue to monitor to ensure it is running at 75mls.
--- NOTE | 2021-11-26 06:19 | NUR ---
Problems reprioritized. Patient report given, questions answered & plan of care reviewed with Susie PATRICIO.
[2021-11-26 07:00] VITALS: BP 128/62
--- NOTE | 2021-11-26 07:02 | NUR ---
Patient in room U 3024. I have received report from Cecile PATRICIO and had the opportunity to ask questions and assume patient care. Patient sleeping in bed in no acute distress.
[2021-11-26 07:24] LABS: TRIGLYCERIDES 87 MG/DL (20-135)
[2021-11-26 07:57] LABS: BASOPHILS % (AUTO) 0.3 % (0-1); EOSINOPHILS # (AUTO) 0.4 X10'3 (0-0.9); EOSINOPHILS % (AUTO) 4.5 % (0-6); HEMATOCRIT 30.8 % (42.0-52.0); HEMOGLOBIN 10.4 g/dl (14.0-17.9); LYMPHOCYTES # (AUTO) 1.7 X10'3 (1.1-4.8); LYMPHOCYTES % (AUTO) 18.6 % (21-51); MEAN CORPUSCULAR HEMOGLOBIN 31.4 PG (27.0-31.0); MEAN CORPUSCULAR HGB CONC 33.7 g/dL (33.0-36.5); MEAN PLATELET VOLUME 8.1 FL (7.4-10.4); MONOCYTES # (AUTO) 0.7 X10'3 (0-0.9); MONOCYTES % (AUTO) 8.3 % (2-12); NEUTROPHILS # (AUTO) 6.1 X10'3 (1.8-7.7); NEUTROPHILS % (AUTO) 68.3 % (42-75); PLATELET COUNT 282 X10'3 (140-440); RED BLOOD COUNT 3.31 X10'6 (4.70-6.10); RED CELL DISTRIBUTION WIDTH 16.7 % (11.5-14.5); WHITE BLOOD COUNT 8.9 X10'3 (4.5-11.0)
[2021-11-26] MEDS: nicotine 14mg patch - 24hr TD SCH (08:00)
[2021-11-26 08:07] LABS: ALANINE AMINOTRANSFERASE 32 U/L (12-78); ALBUMIN 1.9 G/DL (3.4-5.0); ALBUMIN/GLOBULIN RATIO 0.4 (1.1-1.5); ALKALINE PHOSPHATASE 52 IU/L (46-116); ANION GAP 6 (8-16); ASPARTATE AMINO TRANSFERASE 33 U/L (10-37); BILIRUBIN,TOTAL 0.5 MG/DL (0.1-1.0); BLOOD UREA NITROGEN 16 MG/DL (7-18); BUN/CREATININE RATIO 15.4 (5.4-32.0); CALCIUM 8.2 MG/DL (8.5-10.1); CHLORIDE 105 MMOL/L (99-107); CREATININE 1.04 MG/DL (0.60-1.10); GLUCOSE 95 MG/DL (70-104); POTASSIUM 4.1 MMOL/L (3.5-5.1); SODIUM 138 MMOL/L (135-145); TOTAL CARBON DIOXIDE 26.8 MMOL/L (24-32); TOTAL PROTEIN 6.7 G/DL (6.4-8.2); eGFR 71 ML/MIN
[2021-11-26] MEDS: pantoprazole 40MG/NS 100ML BAG 100 ML IV SCH (08:22)
[2021-11-26] MEDS: lactobacillus rhamnosus 10,000 MMU CELLS/CAPSULE PO SCH ×2 (08:23→19:32)
[2021-11-26] MEDS: aspirin 81mg, enteric-coated 1 TAB TABLET.DR PO SCH (08:23)
[2021-11-26] MEDS: piperacillin/tazo 3.375gm/50ml 50 ML IV SCH ×2 (08:23→15:43)
[2021-11-26] MEDS: HYDROmorphone inj. 0.5 MG/0.5 ML DISP.SYRIN IV PRN ×4 (08:36→19:32)
--- NOTE | 2021-11-26 14:43 | NUR ---
Reassessment: Pt continues eating well with 100% PO intake since 11/23 meeting estimated nutrient needs. LBM 11/25. No nutrition intervention implemented at this time. Will continue to follow. Recommendations: 1) Continue regular diet 2) Monitor need for ONS/additional protein 3) Routine bowel care 4) Weekly scaled weights Addendum: 11/26/21 at [address] Amended: Links added.
[2021-11-26 15:00] VITALS: BP 122/58
[2021-11-26 18:00] VITALS: BP 105/51
--- NOTE | 2021-11-26 18:24 | NUR ---
Problems reprioritized. Patient report given, questions answered & plan of care reviewed with Tequila PATRICIO. Patient resting in bed in no acute distress.
[2021-11-26] MEDS: enoxaparin 40mg/0.4ml syringe SQ SCH (19:32)
[2021-11-26] MEDS: insulin glargine (Lantus) pen - multi-dose SQ SCH (21:00)
[2021-11-26 22:00] VITALS: BP 110/52
[2021-11-27] MEDS: piperacillin/tazo 3.375gm/50ml 50 ML IV SCH ×4 (00:41→23:34)
[2021-11-27 02:00] VITALS: BP 116/64
[2021-11-27 06:00] VITALS: BP 127/59
--- NOTE | 2021-11-27 06:15 | NUR ---
received report from kendal sullivan
--- NOTE | 2021-11-27 06:54 | NUR ---
Problems reprioritized. Patient report given, questions answered & plan of care reviewed with Kelsey PATRICIO.
[2021-11-27] MEDS: lactobacillus rhamnosus 10,000 MMU CELLS/CAPSULE PO SCH ×2 (07:59→20:05)
[2021-11-27] MEDS: nicotine 14mg patch - 24hr TD SCH (08:00)
[2021-11-27] MEDS: aspirin 81mg, enteric-coated 1 TAB TABLET.DR PO SCH (08:00)
[2021-11-27] MEDS: pantoprazole 40MG/NS 100ML BAG 100 ML IV SCH (08:02)
[2021-11-27] MEDS: HYDROmorphone inj. 0.5 MG/0.5 ML DISP.SYRIN IV PRN ×3 (08:16→15:08)
[2021-11-27] MEDS: bisacodyl 5mg tablet.DR PO SCH (10:00)
[2021-11-27 11:00] VITALS: BP 109/51
[2021-11-27 15:00] VITALS: BP 126/64
[2021-11-27 18:00] VITALS: BP 113/53
--- NOTE | 2021-11-27 18:18 | NUR ---
gave report to kendal shankar
[2021-11-27] MEDS: enoxaparin 40mg/0.4ml syringe SQ SCH (20:09)
[2021-11-27] MEDS: insulin glargine (Lantus) pen - multi-dose SQ SCH (20:33)
[2021-11-27 22:00] VITALS: BP 122/51
[2021-11-28 02:00] VITALS: BP 98/44
--- NOTE | 2021-11-28 05:29 | NUR ---
Mr. Tapia has been assessed as indicated. He continues to deny pain. He has been provided with a bed bath and this has been tolerated well. He successfully uses the urinal. R groin wound vac has a good seal and continues to drain small amounts of serosanguineous output. He was assisted to the chair for a short while this shift and this was well tolerated. He is presently resting quietly with no s/s of distress or discomfort.
[2021-11-28] MEDS: HYDROmorphone inj. 0.5 MG/0.5 ML DISP.SYRIN IV PRN ×3 (05:38→19:44)
--- NOTE | 2021-11-28 06:15 | NUR ---
Problems reprioritized. Patient report given, questions answered & plan of care reviewed with Davie PATRICIO.
[2021-11-28 06:55] VITALS: BP 138/63
[2021-11-28] MEDS: nicotine 14mg patch - 24hr TD SCH (08:00)
[2021-11-28] MEDS: lactobacillus rhamnosus 10,000 MMU CELLS/CAPSULE PO SCH ×2 (08:14→19:44)
[2021-11-28] MEDS: aspirin 81mg, enteric-coated 1 TAB TABLET.DR PO SCH (08:14)
[2021-11-28] MEDS: piperacillin/tazo 3.375gm/50ml 50 ML IV SCH ×3 (08:15→23:48)
[2021-11-28] MEDS: pantoprazole 40MG/NS 100ML BAG 100 ML IV SCH (08:15)
[2021-11-28] MEDS: acetaminophen 325mg tablet PO PRN ×2 (11:26→19:44)
[2021-11-28 11:27] VITALS: BP 133/55
[2021-11-28 16:13] VITALS: BP 126/55
[2021-11-28 18:00] VITALS: BP 131/58
--- NOTE | 2021-11-28 18:31 | NUR ---
Patient in room PCU 3024. I have received report from Davie PATRICIO and had the opportunity to ask questions and assume patient care.
[2021-11-28] MEDS: enoxaparin 40mg/0.4ml syringe SQ SCH (19:45)
[2021-11-28] MEDS: insulin glargine (Lantus) pen - multi-dose SQ SCH (20:58)
[2021-11-28 22:00] VITALS: BP 128/62
[2021-11-29 02:00] VITALS: BP 142/41
[2021-11-29] MEDS: HYDROmorphone inj. 0.5 MG/0.5 ML DISP.SYRIN IV PRN ×2 (04:12→07:45)
--- NOTE | 2021-11-29 06:12 | NUR ---
Problems reprioritized. Patient report given, questions answered & plan of care reviewed with Davie PATRICIO.
[2021-11-29 07:27] VITALS: BP 108/55
[2021-11-29] MEDS: pantoprazole 40MG/NS 100ML BAG 100 ML IV SCH (07:44)
[2021-11-29] MEDS: piperacillin/tazo 3.375gm/50ml 50 ML IV SCH (07:44)
[2021-11-29] MEDS: lactobacillus rhamnosus 10,000 MMU CELLS/CAPSULE PO SCH (07:45)
[2021-11-29] MEDS: acetaminophen 325mg tablet PO PRN (07:45)
[2021-11-29] MEDS: aspirin 81mg, enteric-coated 1 TAB TABLET.DR PO SCH (07:45)
[2021-11-29] MEDS: nicotine 14mg patch - 24hr TD SCH (07:46)
[2021-11-29 11:11] VITALS: BP 135/51
[2021-11-29] MEDS ORDERED: NICO-631 TD (13:25)
[2021-11-29] MEDS ORDERED: HYDR-3965 PO (13:25)
[2021-11-29] MEDS ORDERED: ASPI-1071 PO (13:25)
--- NOTE | 2021-11-29 13:41 | NUR ---
WOUND INFECTION EDUCATION PROVIDED BY WOUND CARE 1. Patient instructed to call their primary doctor, or go the ED immediately if any of the following symptoms occur: * Increased pain in wound * Increase in drainage from the wound * Redness in the skin surrounding the wound * Warmth in the skin surrounding the wound * Bleeding from the wound * Temperature of 101 or greater 2. If any of these occur while in the hospital tell a nurse immediately. PRESSURE ULCER EDUCATION: DEFINITION: A pressure ulcer is an area of skin that breaks down when you stay in one position too long. The constant pressure against the skin reduces the blood flow to that area and the affected tissue dies. CAUSES: "Being bedridden or in a wheelchair "Fragile skin "Having a chronic condition, such as diabetes or vascular disease "Inability to move certain parts of your body without assistance "Older age "Incontinence of urine or stool SYMPTOMS: "A reddened area that DOES NOT turn white when pressed on - this can be the beginning of a pressure ulcer "A blister, deep sore or a crater - these can be advanced pressure ulcers FIRST AID: "Relieve the pressure on this area "Keep the area clean and dry "Call your primary doctor if you see any of the above symptoms "DO NOT massage the area "DO NOT use a donut shaped or ring shaped pillow- these actually interfere with the blood flow and cause complications PREVENTION: "Check for pressure ulcers everyday "Change position at least every two hours to relieve pressure "Use items that help relieve pressure- pillows, sheepskin, foam padding, and powders. "Keep skin clean and dry "Eat healthy well balanced meals "Exercise daily IF YOU SEE ANY OF THESE SYMPTOMS WHILE IN THE HOSPITAL - TELL YOUR NURSE IMMEDIATELY. IF YOU SEE ANY OF THESE SYMPTOMS WHILE AT HOME OR HAVE ANY QUESTIONS OR CONCERNS ABOUT PRESSURE ULCERS - CALL YOUR PRIMARY DOCTOR IMMEDIATELY. Addendum: 11/29/21 at 1342 by Pat Brothers RN Amended: Links added.
== END 2021-11-29 14:56 | disposition home health service (06) | DRG 270 ==
LOC: UNDOADMIN 19:25 → PACU 19:25 → CICU 2S 11-19 01:10 → PCU 3S 11-21 12:20
PROVIDERS: ADMIT Surgery; ATTEND Surgery
PROC: 041C0JQ Bypass Right Common Iliac Artery to Lower Extremity Artery with Synthetic Substitute, Open Approach (ICD-10-PCS; principal; 2021-11-19)
PROC: 04PY0JZ Removal of Synthetic Substitute from Lower Artery, Open Approach (ICD-10-PCS; 2021-11-19)
PROC: 04CC0ZZ Extirpation of Matter from Right Common Iliac Artery, Open Approach (ICD-10-PCS; 2021-11-19)
PROC: 0KX Muscles, Transfer (ICD-10-PCS; 2021-11-19)
PROC: 0JDL0ZZ Extraction of Right Upper Leg Subcutaneous Tissue and Fascia, Open Approach (ICD-10-PCS; 2021-11-19)
PROC: 30233N1 Transfusion of Nonautologous Red Blood Cells into Peripheral Vein, Percutaneous Approach (ICD-10-PCS; 2021-11-19)
PROC: 05HY33Z Insertion of Infusion Device into Upper Vein, Percutaneous Approach (ICD-10-PCS; 2021-11-28)
DX: T82.7XXA Infection and inflammatory reaction due to other cardiac and vascular devices, implants and grafts, initial encounter (principal); A41.9 Sepsis, unspecified organism; L03.314 Cellulitis of groin; D62 Acute posthemorrhagic anemia; T82.838A Hemorrhage due to vascular prosthetic devices, implants and grafts, initial encounter; I70.201 Unspecified atherosclerosis of native arteries of extremities, right leg; E87.6 Hypokalemia; E83.42 Hypomagnesemia; B95.0 Streptococcus, group A, as the cause of diseases classified elsewhere; Y83.2 Surgical operation with anastomosis, bypass or graft as the cause of abnormal reaction of the patient, or of later complication, without mention of misadventure at the time of the procedure; Z82.49 Family history of ischemic heart disease and other diseases of the circulatory system; Y92.89 Other specified places as the place of occurrence of the external cause
CPT/HCPCS: 36410; 36415; 36430; 36569; 36573; 36600; 71045; 74018; 80048; 80053; 80202; 82803; 82948; 83036; 83735; 84100; 84478; 85007; 85018; 85025; 85610; 85730; 86885; 86900; 86901; 86920; 87070; 87075; 87077; 87186; 88300; 88305; 93005; 94002; 94003; 94760; 97116; 97161; 97530; A4215; A4618; A6455; A7000; C1751; C1758; C1768; C9113; G0378; J0690; J1100; J1170; J1644; J1650; J1815; J2250; J2543; J2704; J3010; J3370; J3475; J3480; J3490; J7030; J7040; J7120; P9016; P9045

== ENCOUNTER 2024-03-03 08:08 | Outpatient (CLI) | payer BC, MEDICAID ==
[~2024-03-03] VITALS: Ht 170.2 cm; Wt 77.1 kg
[~2024-03-03 08:08] MED LIST changes: +ASPI-1071 PO; -CLOP75TA34 PO; -IBUP-1985 PO
[2024-03-03] MEDS ORDERED: metoprolol tartrate 1mg/ml inj IV PRN (08:50)
[2024-03-03] MEDS ORDERED: normal saline 500ml IV soln 500 ML IV ONE (08:50)
[2024-03-03] MEDS ORDERED: nitroGLYCERIN 0.4mg SUBLingual tab SL PRN (08:50)
[2024-03-03] MEDS ORDERED: aminophylline 250mg/10ml inj. IV PRN (09:35)
[2024-03-03] MEDS: regadenoson 0.4mg/5ml syringe IV ONE (09:39)
[2024-03-03 09:50] VITALS: BP 157/80; PULSE 69; RESP 16; O2SAT 98
[2024-03-03 09:55] VITALS: BP 162/79; PULSE 79; RESP 16; O2SAT 98
[2024-03-03 09:56] VITALS: BP 147/54; PULSE 82; RESP 20; O2SAT 98
[2024-03-03 09:57] VITALS: BP 136/69; PULSE 82; RESP 16; O2SAT 98
[2024-03-03 09:58] VITALS: BP 139/63; PULSE 80; RESP 16; O2SAT 100
[2024-03-03 09:59] VITALS: BP 148/69; PULSE 79; RESP 16; O2SAT 100
== END 2024-03-03 23:59 | disposition home or self-care (01) ==
LOC: RAD 08:08
PROVIDERS: ATTEND Internal Medicine Cardiovascular Disease
DX: I51.4 Myocarditis, unspecified (principal); Z95.828 Presence of other vascular implants and grafts
CPT/HCPCS: 78452; 93017; A9500; J2785; J7040; J0280; J3490